=== PATIENT | male | born 1965 | race Caucasian/White ===

== ENCOUNTER 2017-12-22 17:13 | Inpatient (IN) | payer SELFPAY ==
[~2017-12-22] VITALS: Ht 170.2 cm; Wt 90.7 kg
[2017-12-22 18:24] LABS: BASOPHILS % 0.9 % (0.0-2.0); EOSINOPHILS % 0.8 % (0.0-5.0); HEMATOCRIT. 42.6 % (42.0-52.0); HEMOGLOBIN. 14.3 g/dL (14.0-18.0); LYMPHOCYTES % 36.8 % (20.0-50.0); MEAN CORPUSCULAR HEMOGLOBIN 30.3 pg (28.0-32.0); MEAN CORPUSCULAR VOLUME 90.2 fL (80.0-94.0); MEAN PLATELET VOLUME 9.2 fl (7.4-10.4); MONOCYTES % 5.5 % (2.0-8.0); PLATELET 189 x1000/uL (130-400); RED BLOOD CELL COUNT 4.72 mill/uL (4.7-6.1)
[2017-12-22 18:29] LABS: INR 1.1; PROTHROMBIN TIME 11.4 sec (9.4-11.6)
[2017-12-22 18:32] LABS: CHLORIDE 106 mEq/L (98-107)
[2017-12-22] MEDS ORDERED: FAMOTIDINE 20MG/2ML VIAL IV STA (23:49)
[2017-12-22] MEDS ORDERED: SODIUM CHLORIDE 0.9% 1,000 ML IV ONE (23:49)
[2017-12-23 04:15] VITALS: BP 130/81
[2017-12-23] MEDS: DEXT 5%/0.45% NACL KCL 20MEQ/L 1,000 ML IV SCH ×2 (06:29→18:10)
[2017-12-23] MEDS ORDERED: ALLO300T2 PO (06:41)
[2017-12-23 08:00] VITALS: BP 114/62
[2017-12-23 08:25] LABS: BASOPHILS % 0.5 % (0.0-2.0); EOSINOPHILS % 0.9 % (0.0-5.0); HEMATOCRIT. 37.4 % (42.0-52.0); HEMOGLOBIN. 12.9 g/dL (14.0-18.0); MEAN CORPUSCULAR HEMOGLOBIN 31.1 pg (28.0-32.0); MEAN CORPUSCULAR VOLUME 90.1 fL (80.0-94.0); MEAN PLATELET VOLUME 9.1 fl (7.4-10.4); MONOCYTES % 5.6 % (2.0-8.0); PLATELET 169 x1000/uL (130-400); RED BLOOD CELL COUNT 4.15 mill/uL (4.7-6.1)
[2017-12-23 08:48] LABS: CHLORIDE 109 mEq/L (98-107)
[2017-12-23] MEDS: PANTOPRAZOLE SODIUM 40 MG/VIAL IV SCH ×2 (09:03→21:41)
[2017-12-23] MEDS ORDERED: ONDANSETRON 4MG ODT PO PRN (10:30)
[2017-12-23 12:00] VITALS: BP 122/74
[2017-12-23] MEDS ORDERED: MIDAZOLAM HCL 2 MG/2 ML VIAL IV PRN (14:41)
[2017-12-23] MEDS ORDERED: FENTANYL CITRATE/PF 50MCG/ML 2ML VIAL IV PRN (14:42)
[2017-12-23 16:00] VITALS: BP 103/58
[2017-12-23] MEDS ORDERED: BACTERIOSTATIC SODIUM CHLORIDE 0.9% 30ML VIAL IJ ONE (16:13)
[2017-12-23 20:00] VITALS: BP 129/71
[2017-12-24] VITALS: BP 125/65
[2017-12-24 04:00] VITALS: BP 124/67
[2017-12-24] MEDS: DEXT 5%/0.45% NACL KCL 20MEQ/L 1,000 ML IV SCH (07:00)
[2017-12-24 07:04] LABS: HEMATOCRIT 34.8 % (42.0-52.0)
[2017-12-24 08:00] VITALS: BP 114/68
[2017-12-24] MEDS: PANTOPRAZOLE SODIUM 40 MG/VIAL IV SCH (09:15)
[2017-12-24 12:00] VITALS: BP 123/68
[2017-12-24] MEDS ORDERED: OMEP20CA10 PO (13:49)
[2017-12-24 13:52] VITALS: BP 120/68
[2017-12-24] MEDS ORDERED: OMEPRAZOLE 20MG CAPSULE EXTENDED RELEASE PO SCH (21:00)
== END 2017-12-24 14:30 | disposition home or self-care (01) | DRG 241 ==
LOC: ER 20:52 → 7WST 12-23 02:48 → EDBEDREQTM 12-23 03:09 → EDBEDREQ 12-23 03:09 → ENRESERV 12-23 03:29
PROVIDERS: ADMIT Internal Medicine; ATTEND Internal Medicine
PROC: 0DB68ZX Excision of Stomach, Via Natural or Artificial Opening Endoscopic, Diagnostic (ICD-10-PCS; principal; 2017-12-23 14:00)
DX: K29.71 Gastritis, unspecified, with bleeding (principal); B19.20 Unspecified viral hepatitis C without hepatic coma; M10.9 Gout, unspecified; D64.9 Anemia, unspecified; K44.9 Diaphragmatic hernia without obstruction or gangrene; K80.20 Calculus of gallbladder without cholecystitis without obstruction; Z79.899 Other long term (current) drug therapy
CPT/HCPCS: 36415; 80048; 80053; 82270; 83036; 83690; 85014; 85018; 85025; 85610; 88305; 88313; 96360; 99285; C9113; J3490; J7030